=== PATIENT | female | born 1940 | race Caucasian/White ===

== ENCOUNTER 2017-06-27 10:26 | Outpatient (CLI) | payer OTHER | END 2017-06-27 10:28 | LOC: LAB 10:26 | PROVIDERS: ATTEND Family Medicine | DX: M79.89 Other specified soft tissue disorders (principal) | CPT/HCPCS: 36415; 85379 ==

== ENCOUNTER 2018-02-27 10:03 | Outpatient (CLI) | payer OTHER ==
[2018-02-27 10:24] LABS: BASOPHILS % 0.4 (0.0-1.5); EOSINOPHILS % 3.1 % (0.0-6.8); MEAN CORPUSCULAR HEMOGLOBIN 31.1 pg (28.0-34.0); MONOCYTES % 6.8 % (0.0-11.0); NEUTROPHILS # 3.9 # k/uL (1.4-7.7)
--- NOTE | 2018-02-27 13:40 | Diagnostic Imaging Report ---
SCHUYLER KELLY [facility] [address] [facility] [address] [address] Report Submission Date: Feb 27, 2018 10:55:09 AM EXTRACTION SUPERVISOR Patient Study Name: MONICA WORTHY Date: Feb 27, 2018 10:14:32 AM EXTRACTION SUPERVISOR Modality Type: DX Gender: F Description: LOWER EXTREMITY : 36 Institution: [facility] Physician: SCHUYLER KELLY Examination: Plain film right ankle History: RIGHT ANKLE SWELLING POST DOUBLE HIP SURGERY (Hx) Findings: 3 views of the right ankle demonstrates osteopenia. No fracture or dislocation. Talar dome is intact. Inferior calcaneal spur. Soft tissue fullness/swelling. Small joint effusion. Impression: Osteopenia. No acute appearing cortical abnormality. Soft tissue swelling and joint effusion. Electronically signed on Feb 27, 2018 10:55:09 AM EXTRACTION SUPERVISOR by: John SINGH
--- NOTE | 2018-02-27 13:40 | Diagnostic Imaging Report ---
SCHUYLER KELLY [facility] [address] [facility] [address] [address] Report Submission Date: Feb 27, 2018 10:56:26 AM FAMILY COUNSELOR Patient Study Name: MONICA WORTHY Date: Feb 27, 2018 10:18:54 AM FAMILY COUNSELOR Modality Type: DX Gender: F Description: LOWER EXTREMITY : 36 Institution: [facility] Physician: SCHUYLER KELLY Examination: Plain film right foot History: RIGHT ANKLE SWELLING POST DOUBLE HIP SURGERY (Hx) Findings: 3 views of the right foot demonstrates osteopenia. Articular degenerative changes. No fracture or dislocation. Calcaneal spur. Ankle region soft tissue swelling. Joint effusion. Impression: Osteopenia and degenerative changes. No acute appearing cortical abnormality. Electronically signed on Feb 27, 2018 10:56:26 AM FAMILY COUNSELOR by: John SINGH
== END 2018-02-27 10:05 ==
LOC: LAB 10:03
PROVIDERS: ATTEND Family Medicine
DX: M85.871 Other specified disorders of bone density and structure, right ankle and foot (principal); M24.174 Other articular cartilage disorders, right foot; M79.661 Pain in right lower leg; M25.571 Pain in right ankle and joints of right foot; M79.671 Pain in right foot
CPT/HCPCS: 36415; 73610; 73630; 82306; 82607; 82746; 85025

== ENCOUNTER 2018-02-28 08:07 | Outpatient (CLI) | payer OTHER ==
--- NOTE | 2018-03-01 17:45 | Diagnostic Imaging Report ---
SCHUYLER KELLY [facility] [address] [facility] [address] [address] Report Submission Date: Mar 01, 2018 2:59:02 PM GLOBAL PROJECT MANAGER Patient Study Name: MONICA WORTHY Date: Feb 28, 2018 8:21:11 AM GLOBAL PROJECT MANAGER Modality Type: US Gender: F Description: US BLEV : 36 Institution: [facility] Physician: SCHUYLER KELLY Bilateral lower extremity venous duplex History: Bilateral pain and swelling. Recent hip replacement. Duplex and color flow imaging was performed through the bilateral lower extremity femoral popliteal venous system There is normal compression and normal augmentation throughout the right lower extremity femoral popliteal venous system without evidence for right-sided deep venous thrombosis. There is nonocclusive thrombus within the left superficial femoral vein. The left calf veins are not well visualized. Otherwise, there is normal compression and normal augmentation throughout the remainder of the left lower extremity femoral popliteal venous system. Impression: No evidence for deep venous thrombosis of the right lower extremity. Mild nonocclusive thrombus within the left superficial femoral vein. Electronically signed on Mar 01, 2018 2:59:02 PM GLOBAL PROJECT MANAGER by: Lesvia SINGH
== END 2018-02-28 08:10 ==
LOC: RAD 08:07
PROVIDERS: ATTEND Family Medicine
DX: I82.412 Acute embolism and thrombosis of left femoral vein (principal); R22.43 Localized swelling, mass and lump, lower limb, bilateral
CPT/HCPCS: 93970

== ENCOUNTER 2018-05-01 08:51 | Outpatient (CLI) | payer OTHER ==
[2018-05-01 09:27] LABS: eGFR (Non-African) > 60
== END 2018-05-01 08:53 ==
LOC: LAB 08:51
PROVIDERS: ATTEND Family Medicine
DX: E55.9 Vitamin D deficiency, unspecified (principal); E53.8 Deficiency of other specified B group vitamins
CPT/HCPCS: 36415; 80048; 82306; 82607